=== PATIENT | female | born 1940 | race Caucasian/White ===

== ENCOUNTER 2016-11-21 10:55 | Inpatient (IN) | payer MEDICARE, BC ==
[~2016-11-21] VITALS: Ht 170.2 cm; Wt 83.9 kg
[2016-11-21] VITALS (8 sets, daily range): BP systolic 120–163; BP diastolic 57–67
[~2016-11-21 10:55] MED LIST: ADVIL200 MG PO; AMLODIPINE5 MG PO; ASA LO-DOSE81 MG OR; ASPIRIN ADULT L81 MG PO; ASPIRIN LOW DOS81 M1 PO; AVAPRO OR; BENTYL10 MG PO; BENTYL20 MG PO; CALCIUM600 M1 PO; CALTRATE 600 PO; CENTRUM PO; COZAAR100 MG PO; EVISTA60 MG PO; FLUARIX QUADRIV1 IN1 IM; IMITREX100 M1 PO; IMITREX100 MG PO; KLONOPIN WAF0.5 MG PO; KLONOPIN0.5 MG PO; LASIX 20 MG20 MG/TAB PO; LASIX20 MG PO; LEVAQUIN500 MG PO; LOSARTAN POT100 MG PO; MAGNESIUM250 M1 PO; MEDROL DOSEPAK4 MG PO; METRONIDAZOL500 MG PO; NEXIUM20 M1 PO; NORVASC PO; PREVNAR 13 IM; THERATEARS OP; ULTRAM50 M1 PO; ZANTAC150 M1 PO
--- NOTE | 2016-11-21 11:10 | NUR ---
PT TO ROOM 13 IMMEDIATELY AND TRIAGED AT BEDSIDE.
--- NOTE | 2016-11-21 11:28 | NUR ---
PT NOW WITH IV ESTABLISHED, BLOOD DRAWN, CONCERNED ABOUT SIMILARITY OF SYMPTOMS WHEN SHE HAD A BLOOD CLOT IN HER LUNGS. AT BEDSIDE.
[2016-11-21 11:43] LABS: HEMOGLOBIN 15.3 g/dl (12.0-16.0); IMMATURE GRANULOCYTES 0.2 % (0.0-1.0); MEAN CELL VOLUME 92.4 fL CALC (80.0-100.0); MEAN CORPUSCULAR HGB 30.7 pG CALC (26.0-32.0); MEAN CORPUSCULAR HGB CONC 33.3 g/L CALC (32.0-36.0); NEUT# 4.56 thou/uL (2.00-7.15); RED BLOOD COUNT 4.98 mill/uL (4.20-5.60); RED CELL DISTRI WIDTH 13.2 % (11.5-15.5)
[2016-11-21 11:53] LABS: ALBUMIN 4.8 g/dL (3.2-5.0); ALKALINE PHOSPHATASE 82 u/l (38-126); ANION GAP 15 (6-22 (CALC)); BILIRUBIN, TOTAL 0.6 mg/dL (0.0-1.4); BUN 14 mg/dL (8-23); BUN/CREATININE RATIO 18 (12-20 (CALC)); CALCIUM 9.9 mg/dL (8.4-10.2); CARBON DIOXIDE 29 mmol/l (22-30); CHLORIDE 102 mmol/l (95-108); CREATININE 0.8 mg/dL (0.5-1.0); GFR > 60 ML/MIN (>=60 (CALC)); GFR FOR AFR.AMER. > 60 ML/MIN (>=60 (CALC)); GLUCOSE 102 mg/dL (82-115); SGOT/AST 33 u/l (9-36); SGPT/ALT 36 u/l (11-66); SODIUM 142 mmol/l (137-146); TOTAL PROTEIN 7.9 g/dL (6.3-8.2)
[2016-11-21 11:55] LABS: INTERNATIONAL NORMALIZED RATIO 1.9 RATIO (0.7-1.3); PROTHROMBIN TIME 22.2 SECONDS (9.0-12.5)
[2016-11-21 12:05] LABS: MYOGLOBIN 50 ng/mL (0 - 62)
--- NOTE | 2016-11-21 13:32 | NUR ---
PT WAITS FOR RESULTS OF CTA, NO COMPLAINTS HEARD.
--- NOTE | 2016-11-21 14:12 | NUR ---
SBAR PRINTED TO FLOOR
--- NOTE | 2016-11-21 14:45 | NUR ---
REPORT CALLED TO THANH CUBA, TO ICU SOON.
--- NOTE | 2016-11-21 15:00 | NUR ---
PT ARRIVED TO THE UNIT VIA STRETCHER FROM ER, PT AMBULATED FROM STRETCHER TO DIGITAL SCALE THEN TO BED WITH A STRONG STEADY GAIT, PT A & O X3, PERRL, PT DENIES ANY CHEST PAIN AT THIS TIME AND STATED "THE PAIN COMES AND GOES FROM TIME TO TIME", HR 72, RESP, 18, BP 163/67, O2 98% ON RA, LUNG SOUNDS CLEAR IN ALL CLEMONS, SKIN DRY & INTACT, 20G RAC IV SALINE LOCKED, MONITORING EQUIPMENT AND CALL PADILLA EXPLAINED TO PT PRIOR TO CONNECTING PT TO MONITORING EQUIPMENT, ADMISSION ASSESSMENT COMPLETE, SEE INTERVENTIONS, SAFETY MEASURES INTRODUCED, CALL PADILLA WITHIN REACH
--- NOTE | 2016-11-21 15:10 | NUR ---
PT TO ICU WITHOUT INCIENT.
--- NOTE | 2016-11-21 15:15 | NUR ---
PT ASSISTED TO THE BSC AND BACK TO BED, PT AMBULATED WITH A STRONG STEADY GAIT, PT TOLERATED WELL
--- NOTE | 2016-11-21 15:30 | NUR ---
SETUP ASSISTANCE PROVIDED WITH MEAL TRAY
--- NOTE | 2016-11-21 16:05 | NUR ---
PT SITTING UP IN BED WATCHING TV, WATCHING TV, PT TOLERATED MEAL WELL, CALL PADILLA WITHIN REACH
--- NOTE | 2016-11-21 17:00 | NUR ---
DR HOLLAND AT BEDSIDE DISCUSSING PLAN OF CARE
--- NOTE | 2016-11-21 17:35 | NUR ---
SETUP ASSISTANCE PROVIDED WITH PM MEAL
--- NOTE | 2016-11-21 19:30 | NUR ---
awake. denies chest pain. cardiac moniotor shows sinus rhythm pacs pvcs. #20 lac saline lock. po fluids taken well. voids per bedside commode. fall precautions cont.
--- NOTE | 2016-11-21 21:30 | NUR ---
up to bsc per request. denies chest pain. cardiac monitor technician shows sinus rhythm pacs pvcs.
[2016-11-22 00:01] VITALS: BP 114/48
--- NOTE | 2016-11-22 00:01 | NUR ---
eyes closed. no distress. monitor shows sinus rhythm pacs pvcs.
[2016-11-22 02:00] VITALS: BP 118/53
--- NOTE | 2016-11-22 02:00 | NUR ---
resting quietly. resps even & unlabored. no apparent distress.
[2016-11-22 04:00] VITALS: BP 108/49
--- NOTE | 2016-11-22 04:00 | NUR ---
eyes closed. no distress. monitor shows sinus rhythm pacs pvcs.
--- NOTE | 2016-11-22 05:30 | NUR ---
lab here. blood drawn.
[2016-11-22 06:00] VITALS: BP 119/55
--- NOTE | 2016-11-22 06:00 | NUR ---
awake. denies c/o. monitor shows sinus rhythm.
[2016-11-22 06:32] LABS: INTERNATIONAL NORMALIZED RATIO 1.7 RATIO (0.7-1.3); PROTHROMBIN TIME 19.4 SECONDS (9.0-12.5)
[2016-11-22 06:34] LABS: ALBUMIN 3.9 g/dL (3.2-5.0); ALKALINE PHOSPHATASE 62 u/l (38-126); ANION GAP 12 (6-22 (CALC)); BILIRUBIN, TOTAL 0.6 mg/dL (0.0-1.4); BUN 16 mg/dL (8-23); BUN/CREATININE RATIO 20 (12-20 (CALC)); CALCIUM 9.6 mg/dL (8.4-10.2); CALCULATED LDLCHOLESTEROL 111 mg/dL (62-129 (CALC)); CARBON DIOXIDE 27 mmol/l (22-30); CHLORIDE 105 mmol/l (95-108); CHOLESTEROL HDL RATIO 3.1 (<4.4 (CALC)); CREATININE 0.8 mg/dL (0.5-1.0); GFR > 60 ML/MIN (>=60 (CALC)); GFR FOR AFR.AMER. > 60 ML/MIN (>=60 (CALC)); GLUCOSE 82 mg/dL (82-115); HDL CHOLESTEROL 61 mg/dL (>=40); POTASSIUM 4.3 mmol/l (3.5-5.1); SGOT/AST 21 u/l (9-36); SGPT/ALT 31 u/l (11-66); SODIUM 140 mmol/l (137-146); TOTAL CHOLESTEROL 188 mg/dl (0-199); TOTAL PROTEIN 6.2 g/dL (6.3-8.2); TOTAL TRIGLYCERIDES 76 mg/dl (30-149); VLDL CHOLESTROL 15 mg/dl (0-48 (CALC))
[2016-11-22 08:00] VITALS: BP 142/66
--- NOTE | 2016-11-22 08:15 | NUR ---
PATIENT IN BED SITTING UP. ASSESSMENT COMPLETED AT THIS TIME. RESP EVEN AND UNLABORED. NO S/S OF DISTRESS NOTED. PATIENT DENIES ANY NEEDS OR PAIN. CALL LIGHT IN REACH. ENCOURAGED TO CALL FOR ANY NEEDS.
--- NOTE | 2016-11-22 10:37 | NUR ---
PATIENT IN BED WATCHING TV. RESP EVEN AND UNLABORED. NO S/S OF DISTRESS NOTED. CALL LIGHT IN REACH. ENCOURAGED TO CALL FOR ANY NEEDS.
[2016-11-22 12:00] VITALS: BP 140/69
== END 2016-11-22 12:45 | disposition home or self-care (01) | DRG 303 ==
LOC: ENPENDDIS → ED 10:55 → ED-I 13:58 → ED 14:05 → ICU 14:06
PROVIDERS: Emergency Medicine; ADMIT Internal Medicine Geriatric Medicine; ATTEND Internal Medicine Geriatric Medicine
DX: I25.110 Atherosclerotic heart disease of native coronary artery with unstable angina pectoris (principal); I10 Essential (primary) hypertension; K21.9 Gastro-esophageal reflux disease without esophagitis; Z86.711 Personal history of pulmonary embolism; Z79.01 Long term (current) use of anticoagulants
CPT/HCPCS: Q9967

== ENCOUNTER 2017-01-10 14:36 | Emergency (ER) | payer MEDICARE, BC ==
[~2017-01-10] VITALS: Ht 170.2 cm; Wt 85.0 kg
[2017-01-10] MEDS ORDERED: COUMADIN2.5 MG PO (14:45)
[2017-01-10 16:51] LABS: INTERNATIONAL NORMALIZED RATIO 2.2 RATIO (0.7-1.3); PROTHROMBIN TIME 24.4 SECONDS (9.0-12.5)
[2017-01-10 17:19] VITALS: BP 143/70
== END 2017-01-10 17:19 | disposition home or self-care (01) ==
LOC: ED 14:36
PROVIDERS: Family Medicine
DX: M79.604 Pain in right leg (principal); I10 Essential (primary) hypertension; K21.9 Gastro-esophageal reflux disease without esophagitis; Z86.711 Personal history of pulmonary embolism; Z86.718 Personal history of other venous thrombosis and embolism; Z79.01 Long term (current) use of anticoagulants

== ENCOUNTER 2017-12-01 12:53 | Emergency (ER) | payer MEDICARE, BC ==
[~2017-12-01] VITALS: Ht 170.2 cm; Wt 90.0 kg
[~2017-12-01 12:53] MED LIST changes: +COUMADIN2.5 MG PO; -THERATEARS OP; +[UNRECOGNIZED DRUG - OTHER] OU
[2017-12-01] MEDS ORDERED: FUROSEMIDE20 MG PO (14:03)
[2017-12-01] MEDS ORDERED: CORDARONE/200 MG/TAB PO (14:03)
[2017-12-01] MEDS ORDERED: COUMADIN5 MG PO (14:05)
[2017-12-01] MEDS ORDERED: COZAAR100 MG PO (14:06)
[2017-12-01] MEDS ORDERED: MULTI VIT PO (14:07)
[2017-12-01] MEDS ORDERED: KLONOPIN0.5 MG PO (14:07)
[2017-12-01] MEDS ORDERED: CALCIUM 600600 M1 PO (14:08)
[2017-12-01 14:36] LABS: INTERNATIONAL NORMALIZED RATIO 1.9 RATIO (0.7-1.3); PROTHROMBIN TIME 21.7 SECONDS (9.0-12.5)
[2017-12-01 14:45] VITALS: BP 132/64
== END 2017-12-01 14:45 | disposition home or self-care (01) ==
LOC: ED 12:53
PROVIDERS: Emergency Medicine
DX: R79.1 Abnormal coagulation profile (principal); T45.515A Adverse effect of anticoagulants, initial encounter; I10 Essential (primary) hypertension; I27.20 Pulmonary hypertension, unspecified

== ENCOUNTER 2018-05-24 08:34 | Emergency (ER) | payer MEDICARE, BC ==
[~2018-05-24] VITALS: Ht 170.2 cm; Wt 84.0 kg
[~2018-05-24 08:34] MED LIST changes: +CALCIUM 600600 M1 PO; +CORDARONE/200 MG/TAB PO; +COUMADIN5 MG PO; +FUROSEMIDE20 MG PO; +MULTI VIT PO
[2018-05-24 09:47] LABS: URINE BILIRUBIN - DIPSTICK NEGATIVE (NEGATIVE); URINE BLOOD DIPSTICK TRACE-LYSED (NEGATIVE); URINE COLOR YELLOW; URINE GLUCOSE - DIPSTICK NEGATIVE (NEGATIVE); URINE KETONE NEGATIVE (NEGATIVE); URINE NITRITE - DIPSTICK NEGATIVE (Negative); URINE PROTEIN - DIPSTICK NEGATIVE (NEG-TRACE); URINE UROBILINOGEN - DIPSTICK 0.2 E.U./dL (0.2)
[2018-05-24 09:48] LABS: URINE LEUK ESTERASE SMALL (NEGATIVE); URINE RBC 0-2 RBC/hpf (0-5)
[2018-05-24 09:49] LABS: URINE BACTERIA FEW hpf; URINE EPITHELIAL CELLS FEW EPI/hpf (0-FEW)
[2018-05-24 10:49] LABS: HEMATOCRIT 47.1 % (37.0-47.0); HEMOGLOBIN 15.6 g/dl (12.0-16.0); IMMATURE GRANULOCYTES 0.3 % (0.0-5.0); MEAN CELL VOLUME 91.5 fL CALC (80.0-100.0); MEAN CORPUSCULAR HGB 30.3 pG CALC (26.0-32.0); MEAN CORPUSCULAR HGB CONC 33.1 g/L CALC (32.0-36.0); NEUT# 6.02 thou/uL (2.00-7.15); RED BLOOD COUNT 5.15 mill/uL (4.20-5.60); RED CELL DISTRI WIDTH 14.2 % (11.5-15.5)
[2018-05-24 10:58] LABS: INTERNATIONAL NORMALIZED RATIO 3.4 RATIO (0.7-1.3); PROTHROMBIN TIME 35.6 SECONDS (9.0-12.5)
[2018-05-24 10:59] LABS: ALBUMIN 4.1 g/dL (3.2-5.0); ALKALINE PHOSPHATASE 101 u/l (38-126); ANION GAP 13 (6-22 (CALC)); BILIRUBIN, TOTAL 0.6 mg/dL (0.0-1.4); BUN 15 mg/dL (8-23); BUN/CREATININE RATIO 17 (12-20 (CALC)); CARBON DIOXIDE 29 mmol/l (22-30); CHLORIDE 102 mmol/l (95-108); CREATININE 0.9 mg/dL (0.5-1.0); GFR 60 ML/MIN (>=60 (CALC)); GFR FOR AFR.AMER. > 60 ML/MIN (>=60 (CALC)); POTASSIUM 4.4 mmol/l (3.5-5.1); SGOT/AST 23 u/l (9-36); SODIUM 141 mmol/l (137-146); TOTAL PROTEIN 6.9 g/dL (6.3-8.2)
[2018-05-24] MEDS ORDERED: CEPHALEXIN500 M1 PO (11:08)
[2018-05-24 11:20] VITALS: BP 156/69
== END 2018-05-24 11:20 | disposition home or self-care (01) ==
LOC: ED 08:34
PROVIDERS: Emergency Medicine
DX: N39.0 Urinary tract infection, site not specified (principal); R10.31 Right lower quadrant pain; R10.32 Left lower quadrant pain; R19.7 Diarrhea, unspecified; R30.0 Dysuria; B96.20 Unspecified Escherichia coli [E. coli] as the cause of diseases classified elsewhere

== ENCOUNTER 2018-07-06 02:42 | Inpatient (IN) | payer MEDICARE, BC ==
[~2018-07-06] VITALS: Ht 170.2 cm; Wt 84.0 kg
[~2018-07-06 02:42] MED LIST changes: +CEPHALEXIN500 M1 PO
[2018-07-06] MEDS ORDERED: MULTIVITAMIN PO (03:15)
[2018-07-06 04:55] LABS: HEMATOCRIT 52.1 % (37.0-47.0); HEMOGLOBIN 17.3 g/dl (12.0-16.0); IMMATURE GRANULOCYTES 0.3 % (0.0-5.0); MEAN CELL VOLUME 91.4 fL CALC (80.0-100.0); MEAN CORPUSCULAR HGB 30.4 pG CALC (26.0-32.0); MEAN CORPUSCULAR HGB CONC 33.2 g/L CALC (32.0-36.0); NEUT# 9.84 thou/uL (2.00-7.15); RED BLOOD COUNT 5.7 mill/uL (4.20-5.60); RED CELL DISTRI WIDTH 14.2 % (11.5-15.5); URINE BLOOD DIPSTICK TRACE-INTACT (NEGATIVE); URINE COLOR YELLOW; URINE GLUCOSE - DIPSTICK NEGATIVE (NEGATIVE); URINE KETONE 15 mg/dL (NEGATIVE); URINE LEUK ESTERASE NEGATIVE (NEGATIVE); URINE NITRITE - DIPSTICK NEGATIVE (Negative); URINE PH 5.5 (4.5-8.0); URINE PROTEIN - DIPSTICK TRACE mg/dL (NEG-TRACE); URINE SPECIFIC GRAVITY >=1.030; URINE UROBILINOGEN - DIPSTICK 0.2 E.U./dL (0.2)
[2018-07-06 05:07] LABS: URINE BILIRUBIN - DIPSTICK SMALL (NEGATIVE)
[2018-07-06 05:30] LABS: ALBUMIN 4.9 g/dL (3.2-5.0); CREATININE 1.1 mg/dL (0.5-1.0); TOTAL PROTEIN 7.8 g/dL (6.3-8.2)
[2018-07-06 07:58] LABS: PROTHROMBIN TIME 20.4 SECONDS (9.0-12.5)
[2018-07-06 09:30] VITALS: BP 126/68
[2018-07-06 15:09] VITALS: BP 101/49
[2018-07-06 19:18] LABS: C. DIFFICILE TOXIN A&B NEGATIVE (NEGATIVE)
[2018-07-06 19:20] VITALS: BP 118/59
[2018-07-07 04:30] VITALS: BP 116/63
[2018-07-07 09:55] VITALS: BP 136/57
[2018-07-07 13:18] LABS: INTERNATIONAL NORMALIZED RATIO 2.3 RATIO (0.7-1.3); PROTHROMBIN TIME 23.5 SECONDS (9.0-12.5)
[2018-07-07 15:35] VITALS: BP 141/50
[2018-07-07 19:40] VITALS: BP 157/72
[2018-07-08 04:00] VITALS: BP 127/61
[2018-07-08 07:27] VITALS: BP 136/66
[2018-07-08 12:51] LABS: IMMATURE GRANULOCYTES 0.4 % (0.0-5.0); MEAN CELL VOLUME 92.2 fL CALC (80.0-100.0); MEAN CORPUSCULAR HGB 30.2 pG CALC (26.0-32.0); MEAN CORPUSCULAR HGB CONC 32.7 g/L CALC (32.0-36.0); NEUT# 4.15 thou/uL (2.00-7.15); RED BLOOD COUNT 4.77 mill/uL (4.20-5.60); RED CELL DISTRI WIDTH 14.2 % (11.5-15.5)
[2018-07-08 13:00] LABS: HEMOGLOBIN 14.4 g/dl (12.0-16.0)
[2018-07-08 13:30] LABS: ALKALINE PHOSPHATASE 65 u/l (38-126); ANION GAP 13 (6-22 (CALC)); BILIRUBIN, TOTAL 0.5 mg/dL (0.0-1.4); BUN 9 mg/dL (8-23); BUN/CREATININE RATIO 11 (12-20 (CALC)); CARBON DIOXIDE 24 mmol/l (22-30); CHLORIDE 111 mmol/l (95-108); CREATININE 0.8 mg/dL (0.5-1.0); GFR > 60 ML/MIN (>=60 (CALC)); GFR FOR AFR.AMER. > 60 ML/MIN (>=60 (CALC)); POTASSIUM 3.4 mmol/l (3.5-5.1); SGOT/AST 30 u/l (9-36); SODIUM 144 mmol/l (137-146); TOTAL PROTEIN 6.3 g/dL (6.3-8.2)
[2018-07-08 13:33] LABS: ALBUMIN 3.8 g/dL (3.2-5.0)
[2018-07-08 15:05] VITALS: BP 152/60
[2018-07-09 00:39] VITALS: BP 142/68
[2018-07-09 03:53] VITALS: BP 147/73
[2018-07-09 05:04] LABS: HEMATOCRIT 42.2 % (37.0-47.0); HEMOGLOBIN 14.5 g/dl (12.0-16.0); IMMATURE GRANULOCYTES 0.2 % (0.0-5.0); MEAN CELL VOLUME 89.6 fL CALC (80.0-100.0); MEAN CORPUSCULAR HGB 30.8 pG CALC (26.0-32.0); MEAN CORPUSCULAR HGB CONC 34.4 g/L CALC (32.0-36.0); NEUT# 3.63 thou/uL (2.00-7.15); RED BLOOD COUNT 4.71 mill/uL (4.20-5.60); RED CELL DISTRI WIDTH 14.1 % (11.5-15.5)
[2018-07-09 05:20] LABS: INTERNATIONAL NORMALIZED RATIO 2.8 RATIO (0.7-1.3); PROTHROMBIN TIME 28.7 SECONDS (9.0-12.5)
[2018-07-09 05:25] LABS: ALBUMIN 3.5 g/dL (3.2-5.0); ALKALINE PHOSPHATASE 68 u/l (38-126); AMYLASE 36 u/l (30-110); ANION GAP 12 (6-22 (CALC)); BILIRUBIN, TOTAL 0.5 mg/dL (0.0-1.4); BUN 9 mg/dL (8-23); BUN/CREATININE RATIO 11 (12-20 (CALC)); CARBON DIOXIDE 23 mmol/l (22-30); CHLORIDE 110 mmol/l (95-108); CREATININE 0.8 mg/dL (0.5-1.0); GFR > 60 ML/MIN (>=60 (CALC)); GFR FOR AFR.AMER. > 60 ML/MIN (>=60 (CALC)); LIPASE 59 u/l (23-300); MAGNESIUM 1.9 mg/dL (1.6-2.3); POTASSIUM 3.3 mmol/l (3.5-5.1); SGOT/AST 31 u/l (9-36); SODIUM 141 mmol/l (137-146)
[2018-07-09 08:27] VITALS: BP 153/69
[2018-07-09 11:35] VITALS: BP 165/74
[2018-07-09] MEDS ORDERED: CIPROFLOXACIN500 M1 PO (14:43)
[2018-07-09] MEDS ORDERED: METRONIDAZOL500 MG PO (14:45)
== END 2018-07-09 15:31 | disposition home or self-care (01) | DRG 392 ==
LOC: ED 02:42 → ED-I 08:12 → ED 08:33 → MS2 08:34
PROVIDERS: Emergency Medicine; Nurse Practitioner Family; ADMIT Internal Medicine; ATTEND Internal Medicine Nephrology
DX: K52.9 Noninfective gastroenteritis and colitis, unspecified (principal); K57.32 Diverticulitis of large intestine without perforation or abscess without bleeding; I48.92 Unspecified atrial flutter; N17.9 Acute kidney failure, unspecified; E86.0 Dehydration; I10 Essential (primary) hypertension; I25.10 Atherosclerotic heart disease of native coronary artery without angina pectoris; I27.20 Pulmonary hypertension, unspecified; I48.0 Paroxysmal atrial fibrillation; Z79.01 Long term (current) use of anticoagulants; Z86.711 Personal history of pulmonary embolism
CPT/HCPCS: G0378

== ENCOUNTER 2019-08-09 | Emergency (ER) | payer MEDICARE, BC ==
[~2019-08-09] MED LIST changes: +CIPROFLOXACIN500 M1 PO; +MULTIVITAMIN PO
[2019-08-09 06:07] LABS: URINE BILIRUBIN - DIPSTICK NEGATIVE (NEGATIVE); URINE BLOOD DIPSTICK NEGATIVE (NEGATIVE); URINE COLOR YELLOW; URINE GLUCOSE - DIPSTICK NEGATIVE (NEGATIVE); URINE KETONE NEGATIVE (NEGATIVE); URINE LEUK ESTERASE NEGATIVE (NEGATIVE); URINE NITRITE - DIPSTICK NEGATIVE (Negative); URINE PROTEIN - DIPSTICK NEGATIVE (NEG-TRACE); URINE UROBILINOGEN - DIPSTICK 0.2 E.U./dL (0.2)
[2019-08-09 06:40] LABS: HEMATOCRIT 45.4 % (37.0-47.0); HEMOGLOBIN 14.8 g/dl (12.0-16.0); IMMATURE GRANULOCYTES 0.2 % (0.0-5.0); MEAN CELL VOLUME 93.8 fL CALC (80.0-100.0); MEAN CORPUSCULAR HGB 30.6 pG CALC (26.0-32.0); MEAN CORPUSCULAR HGB CONC 32.6 g/L CALC (32.0-36.0); NEUT# 3.24 thou/uL (2.00-7.15); RED BLOOD COUNT 4.84 mill/uL (4.20-5.60); RED CELL DISTRI WIDTH 14.3 % (11.5-15.5)
[2019-08-09] MEDS ORDERED: CARDIZEM CD120 MG PO (06:47)
[2019-08-09] MEDS ORDERED: ELIQUIS2.5 MG PO (06:48)
[2019-08-09] MEDS ORDERED: LASIX20 MG PO (06:49)
[2019-08-09] MEDS ORDERED: OMEPRAZOLE10 MG PO (06:49)
[2019-08-09] MEDS ORDERED: FLORASTOR250 M1 PO (06:50)
[2019-08-09 06:59] LABS: ALBUMIN 3.9 g/dL (3.2-5.0); ALKALINE PHOSPHATASE 90 u/l (38-126); ANION GAP 9 (6-22 (CALC)); BUN 14 mg/dL (8-23); BUN/CREATININE RATIO 17 (12-20 (CALC)); CARBON DIOXIDE 30 mmol/l (22-30); CHLORIDE 106 mmol/l (95-108); CREATININE 0.8 mg/dL (0.5-1.0); GFR > 60 ML/MIN (>=60 (CALC)); GFR FOR AFR.AMER. > 60 ML/MIN (>=60 (CALC)); POTASSIUM 3.7 mmol/l (3.5-5.1); SGOT/AST 20 u/l (9-36); SODIUM 140 mmol/l (137-146); TOTAL PROTEIN 6.7 g/dL (6.3-8.2)
[2019-08-09 07:10] LABS: BILIRUBIN, TOTAL 0.6 mg/dL (0.0-1.4)
[2019-08-09] MEDS ORDERED: CIPROFLOXACN500 MG PO (08:41)
== END 2019-08-09 08:54 | disposition home or self-care (01) ==
PROVIDERS: Family Medicine
DX: K57.32 Diverticulitis of large intestine without perforation or abscess without bleeding (principal); I10 Essential (primary) hypertension

== ENCOUNTER 2019-12-19 16:16 | Emergency (ER) | payer MEDICARE, BC ==
[~2019-12-19] VITALS: Ht 170.2 cm; Wt 84.0 kg
[~2019-12-19 16:16] MED LIST changes: +CARDIZEM CD120 MG PO; +CIPROFLOXACN500 MG PO; +ELIQUIS2.5 MG PO; +FLORASTOR250 M1 PO; +OMEPRAZOLE10 MG PO
[2019-12-19] MEDS ORDERED: LOSARTAN POTASS50 MG PO (16:58)
[2019-12-19] MEDS ORDERED: [UNRECOGNIZED DRUG - OTHER] PO (17:02)
[2019-12-19 17:21] LABS: HEMATOCRIT 49.4 % (37.0-47.0); HEMOGLOBIN 16.1 g/dl (12.0-16.0); IMMATURE GRANULOCYTES 0.4 % (0.0-5.0); MEAN CELL VOLUME 92.3 fL CALC (80.0-100.0); MEAN CORPUSCULAR HGB 30.1 pG CALC (26.0-32.0); MEAN CORPUSCULAR HGB CONC 32.6 g/dL CAL (32.0-36.0); NEUT# 5.64 thou/uL (2.00-7.15); RED BLOOD COUNT 5.35 mill/uL (4.20-5.60); RED CELL DISTRI WIDTH 13.7 % (11.5-15.5)
[2019-12-19 17:46] LABS: ANION GAP 11 (6-22 (CALC)); BUN 14 mg/dL (8-23); BUN/CREATININE RATIO 17 (12-20 (CALC)); CARBON DIOXIDE 28 mmol/l (22-30); CHLORIDE 101 mmol/l (95-108); CREATININE 0.8 mg/dL (0.5-1.0); GFR > 60 ML/MIN (>=60 (CALC)); GFR FOR AFR.AMER. > 60 ML/MIN (>=60 (CALC)); POTASSIUM 3.9 mmol/l (3.5-5.1); SODIUM 136 mmol/l (137-146)
[2019-12-19 19:13] VITALS: BP 153/73
== END 2019-12-19 19:22 | disposition home or self-care (01) ==
LOC: ED 16:16
PROVIDERS: Student in an Organized Health Care Education/Training Program
DX: G43.909 Migraine, unspecified, not intractable, without status migrainosus (principal); I10 Essential (primary) hypertension; I27.20 Pulmonary hypertension, unspecified; I48.92 Unspecified atrial flutter; Z86.711 Personal history of pulmonary embolism; Z79.01 Long term (current) use of anticoagulants

== ENCOUNTER 2019-12-30 19:37 | Emergency (ER) | payer MEDICARE, BC ==
[~2019-12-30] VITALS: Ht 170.2 cm; Wt 81.8 kg
[~2019-12-30 19:37] MED LIST changes: +LOSARTAN POTASS50 MG PO; +[UNRECOGNIZED DRUG - OTHER] PO
[2019-12-30 20:44] VITALS: BP 159/78
== END 2019-12-30 20:54 | disposition home or self-care (01) ==
LOC: ED 19:37
DX: I10 Essential (primary) hypertension (principal); G43.109 Migraine with aura, not intractable, without status migrainosus; F41.9 Anxiety disorder, unspecified; H61.21 Impacted cerumen, right ear; I27.20 Pulmonary hypertension, unspecified; I48.92 Unspecified atrial flutter; Z86.711 Personal history of pulmonary embolism

== ENCOUNTER 2020-10-20 20:42 | Observation (INO) | payer MEDICARE, BC ==
[~2020-10-20] VITALS: Ht 170.2 cm; Wt 87.5 kg
--- NOTE | 2020-10-20 20:50 | NUR ---
AMBULATED TO ROOM WITH STEADY GAIT.
[2020-10-20] MEDS ORDERED: KLONOPIN1 MG PO (21:30)
[2020-10-20] MEDS ORDERED: AMITRIPTYLIN10 MG PO (21:31)
[2020-10-20] MEDS ORDERED: BUT/APAP/CAF PO (21:33)
--- NOTE | 2020-10-20 21:44 | NUR ---
RETURN TO ROOM WITHOUT DIFFICULTY SPEAKING, ALERT
[2020-10-20 21:54] LABS: HEMATOCRIT 51.3 % (37.0-47.0); HEMOGLOBIN 16.7 g/dl (12.0-16.0); IMMATURE GRANULOCYTES 0.1 % (0.0-5.0); MEAN CELL VOLUME 92.6 fL CALC (80.0-100.0); MEAN CORPUSCULAR HGB 30.1 pG CALC (26.0-32.0); MEAN CORPUSCULAR HGB CONC 32.6 g/dL CAL (32.0-36.0); NEUT# 4.67 thou/uL (2.00-7.15); RED BLOOD COUNT 5.54 mill/uL (4.20-5.60); RED CELL DISTRI WIDTH 13.3 % (11.5-15.5)
--- NOTE | 2020-10-20 22:00 | NUR ---
TRANSFERRED CARE TO JANES MEJIAS RN
[2020-10-20 22:06] LABS: ALBUMIN 4.4 g/dL (3.2-5.0); ALKALINE PHOSPHATASE 126 u/l (38-126); ANION GAP 12 (6-22 (CALC)); BILIRUBIN, TOTAL 0.7 mg/dL (0.0-1.4); BUN 27 mg/dL (8-23); BUN/CREATININE RATIO 24 (12-20 (CALC)); CARBON DIOXIDE 30 mmol/l (22-30); CHLORIDE 97 mmol/l (95-108); CREATININE 1.1 mg/dL (0.5-1.0); GFR 48 ML/MIN (>=60 (CALC)); GFR FOR AFR.AMER. 58 ML/MIN (>=60 (CALC)); POTASSIUM 4.1 mmol/l (3.5-5.1); SGOT/AST 29 u/l (9-36); SODIUM 135 mmol/l (137-146); TOTAL PROTEIN 8.1 g/dL (6.3-8.2)
[2020-10-20 22:13] LABS: ACT PARTIAL THROMBO TIME 27.3 SECONDS (20.0-32.5)
[2020-10-20 22:15] LABS: INTERNATIONAL NORMALIZED RATIO 1.2 RATIO (0.7-1.3); PROTHROMBIN TIME 12.5 SECONDS (9.0-12.5)
[2020-10-20 22:54] LABS: URINE BILIRUBIN - DIPSTICK NEGATIVE (NEGATIVE); URINE BLOOD DIPSTICK TRACE-INTACT (NEGATIVE); URINE COLOR YELLOW; URINE GLUCOSE - DIPSTICK NEGATIVE (NEGATIVE); URINE KETONE NEGATIVE (NEGATIVE); URINE LEUK ESTERASE NEGATIVE (NEGATIVE); URINE PH 6.5 (4.5-8.0); URINE PROTEIN - DIPSTICK NEGATIVE (NEG-TRACE); URINE UROBILINOGEN - DIPSTICK 0.2 E.U./dL (0.2)
--- NOTE | 2020-10-20 23:00 | NUR ---
RESTING COMFORTABLY AWAITING ROOM ASSIGNMENT.
[2020-10-20 23:01] LABS: URINE NITRITE - DIPSTICK NEGATIVE (Negative)
--- NOTE | 2020-10-20 23:40 | NUR ---
Admission Note Report Given to: RACH SHAH Transported by: X Wheelchair Stretcher Transported with: X Nurse Transporter X Patent IV O2 X Inshore Undersea Warfare Officer Location: ICU X [facility]
[2020-10-21] VITALS: BP 171/100
--- NOTE | 2020-10-21 | NUR ---
PT ARRIVED TO MED SURG FLOOR VIA WC ACCOMPANIED BY ED NURSE. PT APPEARS TO BE IN STABLE CONDITION AND DENIES PAIN AT THIS TIME. NO S/O DISTRESS NOTED AT THIS TIME. PT ORIENTED TO ROOM, CALL LIGHT, BED, TV. V/S ASSESSED.
--- NOTE | 2020-10-21 01:00 | NUR ---
ED CALLED TO REPORT PT PUBLISHING DIRECTOR WAS NOT READING, PT STABLE, LEADS ARE ALL IN PLACE, NEW LEADS PLACED WITH CLEAR READING AT THIS TIME.
[2020-10-21 01:18] VITALS: BP 169/86
[2020-10-21 04:00] VITALS: BP 156/80
--- NOTE | 2020-10-21 04:00 | NUR ---
PT WAS SLEEPING, LAB UP TO SEE PT AND MANAGER SEARCH ENGINE OBTAINING V/S. NO S/O DISTRESS NOTED, DENIES NEEDS AT THIS TIME.
--- NOTE | 2020-10-21 06:07 | NUR ---
PT ASSISTED TO RESTROOM AND BACK TO BED. ATTEMPTS TO ADMINISTER IVF ORDERS RECEIVED, BUT IV SITE APPEARS OCCLUDED. WILL ATTEMPT NEW IV ACCESS.
[2020-10-21 07:00] VITALS: BP 157/78
--- NOTE | 2020-10-21 07:00 | NUR ---
PATIENT AWAKE AND ALERT AND ORIENTED AT THIS TIME NEURO CHECKS DONE AND REMAINS NEGATIVE FOR ANY DEFICITS. PATIENT DENIES ANY PAIN AND OR NEEDS. LUNG CLEMONS ARE CLEAR AND NO NOTABLE COUGH IS PRESENT. PATIENT DENIES ANY HEADACHE AND AT THIS TIME IT WAS REPORTED BY RACH SHAH THAT IV SITE WAS FOUND DISLODGED AND WAS REMOVED. SIDERAILS ARE UP X 2 CALL LIGHT IS [employer] REACH TELE MONITOR IN PLACE AND BEDING MONITORED BY ED.
[2020-10-21 07:20] LABS: HEMATOCRIT 49.8 % (37.0-47.0); HEMOGLOBIN 16.3 g/dl (12.0-16.0); MEAN CELL VOLUME 91.9 fL CALC (80.0-100.0); MEAN CORPUSCULAR HGB 30.1 pG CALC (26.0-32.0); MEAN CORPUSCULAR HGB CONC 32.7 g/dL CAL (32.0-36.0); RED BLOOD COUNT 5.42 mill/uL (4.20-5.60); RED CELL DISTRI WIDTH 13.4 % (11.5-15.5)
[2020-10-21 07:42] LABS: ANION GAP 8 (6-22 (CALC)); BUN 18 mg/dL (8-23); BUN/CREATININE RATIO 20 (12-20 (CALC)); CARBON DIOXIDE 29 mmol/l (22-30); CHLORIDE 103 mmol/l (95-108); CREATININE 0.9 mg/dL (0.5-1.0); GFR 60 ML/MIN (>=60 (CALC)); GFR FOR AFR.AMER. > 60 ML/MIN (>=60 (CALC)); MAGNESIUM 2.2 mg/dL (1.6-2.3); SODIUM 137 mmol/l (137-146)
[2020-10-21 11:00] VITALS: BP 149/76
--- NOTE | 2020-10-21 11:38 | NUR ---
PATIENT RESTING IN BED AT THIS TIME. PATIENT DENIES ANY NEEDS AND OR HEADACHE PAIN. NEURO CHECKS ARE UNCHANGED AND REMAIN NEGATIVE FOR ANY DEFICITS. SIDERAILS ARE UP CALL LIGHT IS WITHIN REACH TELE MONITOR IN PLACE AND BEING MONITORED BY ED.
--- NOTE | 2020-10-21 14:42 | NUR ---
PATIENT GOING DOWN TO CT FOR SCAN AT THIS TIME VIA WHEELCHAIR.
[2020-10-21 16:00] VITALS: BP 153/87
--- NOTE | 2020-10-21 16:00 | NUR ---
PATIENT RESTING IN BED DEINES ANY NEEDS AT THIS TIME. SIDERAILS ARE UP CALL LIGHT WITHIN REACH. TELE MONITOR ON AND BEING MONITORED BY ED.
[2020-10-21] MEDS ORDERED: METHOCARBAMOL500 MG PO (16:59)
--- NOTE | 2020-10-21 17:49 | NUR ---
ABBIE Philip/Nohemi AT THIS TIME. PATIENT VERBALIZES UNDERSTANDING OF INSTRUCTIONS. PATIENT CHOSE TO HAVE [facility] AND INFORMATION WITH BE FAXED.
--- NOTE | 2020-10-21 17:54 | NUR ---
Discharge instructions given. Patient verbalizes understanding of same. Discharged in stable condition via Wheelchair to Home with *Other. All belongings sent with pt. WILL HAVE [facility] TO FOLLOW
== END 2020-10-21 17:55 ==
LOC: ED 20:42 → ED-I 22:35 → ED 23:01 → MS2 23:03
PROVIDERS: Emergency Medicine; Nurse Practitioner; ADMIT Internal Medicine; ATTEND Internal Medicine
DX: I16.0 Hypertensive urgency (principal); G43.909 Migraine, unspecified, not intractable, without status migrainosus; I10 Essential (primary) hypertension; I27.20 Pulmonary hypertension, unspecified; M62.838 Other muscle spasm; I25.10 Atherosclerotic heart disease of native coronary artery without angina pectoris; I48.92 Unspecified atrial flutter; I48.0 Paroxysmal atrial fibrillation; F41.9 Anxiety disorder, unspecified; Z79.01 Long term (current) use of anticoagulants; Z86.711 Personal history of pulmonary embolism; Z20.822 Contact with and (suspected) exposure to COVID-19; N28.9 Disorder of kidney and ureter, unspecified
CPT/HCPCS: G0378

== ENCOUNTER 2021-04-29 07:36 | Emergency (ER) | payer MEDICARE, BC ==
[~2021-04-29] VITALS: Ht 170.2 cm; Wt 75.0 kg
[~2021-04-29 07:36] MED LIST changes: +AMITRIPTYLIN10 MG PO; +BUT/APAP/CAF PO; +KLONOPIN1 MG PO; +METHOCARBAMOL500 MG PO
[2021-04-29 09:32] LABS: GFR 60 ML/MIN (>=60 (CALC)); GFR FOR AFR.AMER. > 60 ML/MIN (>=60 (CALC))
[2021-04-29 09:36] LABS: HEMATOCRIT 49.7 % (37.0-47.0); HEMOGLOBIN 16.4 g/dl (12.0-16.0); IMMATURE GRANULOCYTES 0.1 % (0.0-5.0); MEAN CELL VOLUME 93.6 fL CALC (80.0-100.0); MEAN CORPUSCULAR HGB 30.9 pG CALC (26.0-32.0); NEUT# 5.97 thou/uL (2.00-7.15); RED BLOOD COUNT 5.31 mill/uL (4.20-5.60); RED CELL DISTRI WIDTH 13.6 % (11.5-15.5)
[2021-04-29 09:40] LABS: URINE BILIRUBIN - DIPSTICK NEGATIVE (NEGATIVE); URINE BLOOD DIPSTICK NEGATIVE (NEGATIVE); URINE COLOR YELLOW; URINE GLUCOSE - DIPSTICK NEGATIVE (NEGATIVE); URINE KETONE NEGATIVE (NEGATIVE); URINE LEUK ESTERASE NEGATIVE (NEGATIVE); URINE PROTEIN - DIPSTICK NEGATIVE (NEG-TRACE); URINE UROBILINOGEN - DIPSTICK 0.2 E.U./dL (0.2)
[2021-04-29 09:41] LABS: URINE NITRITE - DIPSTICK NEGATIVE (Negative)
[2021-04-29 09:46] LABS: ALBUMIN 4.4 g/dL (3.2-5.0); ALKALINE PHOSPHATASE 114 u/l (38-126); ANION GAP 11 (6-22 (CALC)); BUN 16 mg/dL (8-23); BUN/CREATININE RATIO 19 (12-20 (CALC)); CARBON DIOXIDE 30 mmol/l (22-30); CHLORIDE 103 mmol/l (95-108); CREATININE 0.8 mg/dL (0.5-1.0); GFR > 60 ML/MIN (>=60 (CALC)); GFR FOR AFR.AMER. > 60 ML/MIN (>=60 (CALC)); LIPASE 33 u/l (23-300); POTASSIUM 4.2 mmol/l (3.5-5.1); SGOT/AST 27 u/l (9-36); SODIUM 140 mmol/l (137-146); TOTAL PROTEIN 7.8 g/dL (6.3-8.2)
[2021-04-29 09:48] LABS: BILIRUBIN, TOTAL 1.1 mg/dL (0.0-1.4)
[2021-04-29] MEDS ORDERED: METRONIDAZOLE500 MG PO (11:20)
[2021-04-29] MEDS ORDERED: REGLAN10 MG PO (11:20)
[2021-04-29] MEDS ORDERED: CIPROFLOXACN500 MG PO (11:20)
[2021-04-29 11:27] VITALS: BP 149/79
== END 2021-04-29 11:41 | disposition home or self-care (01) ==
LOC: ED 07:36
PROVIDERS: Family Medicine
DX: K57.32 Diverticulitis of large intestine without perforation or abscess without bleeding (principal); I10 Essential (primary) hypertension; Z86.711 Personal history of pulmonary embolism; Z79.01 Long term (current) use of anticoagulants; Z88.1 Allergy status to other antibiotic agents; Z88.0 Allergy status to penicillin

== ENCOUNTER 2024-02-03 04:19 | Emergency (ER) | payer MEDICARE, BC ==
[2024-02-03] VITALS (11 sets, daily range): BP systolic 151–176; BP diastolic 74–111
[~2024-02-03] VITALS: Ht 170.2 cm; Wt 76.0 kg
[~2024-02-03 04:19] MED LIST changes: +METRONIDAZOLE500 MG PO; +REGLAN10 MG PO
[2024-02-03] MEDS ORDERED: SODIUM CHLORIDE 0.9% 1,000 ML IV ONE (04:55)
[2024-02-03] MEDS ORDERED: HYDRALAZINE HYD25 MG PO (04:55)
[2024-02-03] MEDS ORDERED: AMITRIPTYLINE H10 MG PO (04:56)
[2024-02-03] MEDS ORDERED: DICYCLOMINE HYD10 MG PO (04:57)
[2024-02-03] MEDS ORDERED: QUESTRAN4 GM/DOSE (04:58)
[2024-02-03 05:06] LABS: URINE BILIRUBIN - DIPSTICK Negative (NEGATIVE); URINE BLOOD DIPSTICK Negative (NEGATIVE); URINE COLOR Yellow; URINE GLUCOSE - DIPSTICK Negative (NEGATIVE); URINE KETONE Negative (NEGATIVE); URINE LEUK ESTERASE Trace (NEGATIVE); URINE NITRITE - DIPSTICK Negative (Negative); URINE PH 6.5 (4.5-8.0); URINE PROTEIN - DIPSTICK Negative (NEG-TRACE); URINE SPECIFIC GRAVITY 1.015; URINE UROBILINOGEN - DIPSTICK 0.2 E.U./dL (0.2)
[2024-02-03] MEDS ORDERED: METOCLOPRAMIDE HCL 10 MG/2 ML SDV IV ONE (05:10)
[2024-02-03] MEDS ORDERED: DiphenhydrAMINE HCL 50 MG/ML SDV IV ONE (05:10)
[2024-02-03] MEDS ORDERED: BENZTROPINE MESYLATE 2 MG/2 ML AMP IV ONE (05:15)
[2024-02-03 05:39] LABS: BASO% 0.4 % (0-3); EOS% 0.3 % (0-8); HEMATOCRIT 50.2 % (37.0-47.0); HEMOGLOBIN 16.1 g/dl (12.0-16.0); IMMATURE GRANULOCYTES 0.2 % (0.0-5.0); LYMPH% 9.5 % (15-41); MEAN CELL VOLUME 93.3 fL CALC (80.0-100.0); MEAN CORPUSCULAR HGB 29.9 pG CALC (26.0-32.0); MEAN CORPUSCULAR HGB CONC 32.1 g/dL CAL (32.0-36.0); MONO% 8.2 % (2-13); NEUT# 7.85 thou/uL (2.00-7.15); NEUT% 81.4 % (42-76); RED BLOOD COUNT 5.38 mill/uL (4.20-5.60); RED CELL DISTRI WIDTH 13.8 % (11.5-15.5)
[2024-02-03 05:50] LABS: BILIRUBIN, TOTAL 1.1 mg/dL (0.02-1.3); CREATININE 0.8 mg/dL (0.5-1.0); TOTAL PROTEIN 6.7 g/dL (6.3-8.2)
[2024-02-04] MEDS ORDERED: REGLAN10 MG PO (00:20)
== END 2024-02-03 10:13 | disposition home or self-care (01) ==
LOC: ED 04:19
PROVIDERS: Emergency Medicine
DX: K57.32 Diverticulitis of large intestine without perforation or abscess without bleeding (principal); I10 Essential (primary) hypertension; I27.20 Pulmonary hypertension, unspecified; I48.92 Unspecified atrial flutter; Z86.711 Personal history of pulmonary embolism; Z79.01 Long term (current) use of anticoagulants
CPT/HCPCS: J0515; Q9967

== ENCOUNTER 2024-02-03 23:18 | Emergency (ER) | payer MEDICARE, BC ==
[~2024-02-03] VITALS: Ht 170.2 cm; Wt 74.0 kg
[~2024-02-03 23:18] MED LIST changes: +AMITRIPTYLINE H10 MG PO; +DICYCLOMINE HYD10 MG PO; +HYDRALAZINE HYD25 MG PO; +QUESTRAN4 GM/DOSE
[2024-02-03 23:43] VITALS: BP 131/70
[2024-02-04] VITALS: BP 131/64
[2024-02-04] MEDS ORDERED: BENZTROPINE MESYLATE 2 MG/2 ML AMP IV ONE (00:15)
[2024-02-04] MEDS ORDERED: LACTATED RINGER'S 1,000 ML IV ONE (00:15)
[2024-02-04] MEDS ORDERED: METOCLOPRAMIDE HCL 10 MG/2 ML SDV IV ONE (00:15)
[2024-02-04] MEDS ORDERED: REGLAN10 MG PO (00:20)
[2024-02-04 00:30] VITALS: BP 148/61
[2024-02-04 01:00] VITALS: BP 144/73
[2024-02-04 01:30] VITALS: BP 139/65
== END 2024-02-04 01:45 | disposition home or self-care (01) ==
LOC: ED 23:18
DX: R11.0 Nausea (principal); K57.92 Diverticulitis of intestine, part unspecified, without perforation or abscess without bleeding; I10 Essential (primary) hypertension; I27.20 Pulmonary hypertension, unspecified; I48.92 Unspecified atrial flutter; Z86.711 Personal history of pulmonary embolism
CPT/HCPCS: J0515